=== PATIENT | male | born 1960 | race Caucasian/White ===

== ENCOUNTER 2016-07-02 09:50 | Day surgery (SDC) | payer OTHER ==
[~2016-07-02] VITALS: Ht 188 cm; Wt 107.0 kg
--- NOTE | 2016-07-02 07:09 | PCM.HPANE ---
Patient Data Surgeon Admitting Provider: Attending Provider:Davide Thakur MD Primary Care Physician:Geri Haynes MD Other Provider:[facility] Reason for Visit Benign Neoplasm Of Colon Ht/WT & BMI Body Mass Index Allergies Coded Allergies: No Known Allergies (Verified Allergy, Unknown, 07/01/16) meperidine (Verified Adverse Reaction, Intermediate, nauseated, 06/03/13) Past Anesthesia History Anesthesia History: Denies:: Abnormal Airway, Anesthesia Reactions, Difficult Intubation, Fam Anesthesia Reaction, Fam Malignant Hypertherm, Malignant Hyperthermia Diabetes History Hx Diabetes?: No MRSA MRSA: No Medications Reported Medications Acetaminophen 325 Mg [id number] Mg PO Q4H PRN For Fever Ref 0 07/01/16 Dicyclomine (Bentyl)10 Mg [id number] Mg PO QID 07/01/16 Naproxen Sodium (Aleve)220 Mg [id number] Mg PO DAILY 07/01/16 Omeprazole-Expunged Drug, Do Not Renew! 20 Mg Capsule.dr20 Mg PO DAILY 11/04/12 History History of ENT Problems?: No HEENT History: Denies:: Abnormal Airway Cataracts Difficult Intubation Dysphagia Glaucoma Hearing Problem Sinus Problem TMJ Denture Type: None Teeth Condition: Within Normal Limits Hx of Heart Problems?: Yes Cardiovascular History: Positive for:: Hypertension (MILD) Irregular Heartbeat Denies:: Heart Murmur Rheumatic Fever Hx of Respiratory Problem?: Yes Respiratory History: Positive for:: Use of C-PAP Machine (SNORES, YUKI +) Denies:: Tuberculosis Hx Neurologic Problems?: No Neurological History: Denies:: CVA Seizures Hx of GI Problems?: Yes Gastrointestinal History: Positive for:: Gastroesphageal Reflux Hx of Problems?: No Male Hx: Positive for:: Scrotal Mass (LT SPERMATOCELE) Hx Musculoskeletal Problems?: Yes Hx of Psycho/Social Problems?: Yes Psycho Social History: Positive for:: Anxiety Hx Surgeries?: Yes (VEIN STRIPPING, RADIOFREQUENCY ABLATION/LIGATION OF VARICOSE VEINS) Hx Any Other Health Problems?: Yes Hx Diabetes: No Hx Alcohol Use: Yes (OCCASSIONAL)Hx Substance Use: NoHave You Smoked inLast 12 mo: No (30+ YR HX) Stop/Bang YUKI Risk Assessment: Low Risk, <3 Yes Risk Assessment Category Category 1A: Patient has history of documented sleep apnea, and HAS NOT received any narcotic, sedative or anesthesia administration during this stay. Category 1B: Patient has history of documented sleep apnea, and HAS received any narcotic , sedative or anesthesia administration during this stay Category 2: Patient has SUSPECTED Obstructive Sleep Apnea, and HAS received any narcotic , sedative or anesthesia administration during this stay. Category 3: Patient has SUSPECTED Obstructive Sleep Apnea and HAS NOT received narcotic, sedative or anesthesia administration during this stay. Category 4: Outpatient in Procedural Areas with known sleep apnea or who screen positive for High Risk via the STOP/BANG questionnaire. Exam Exam General Appearance: Alert, Oriented X3, Cooperative, No Acute Distress HEENT/AIRWAY: MP 2 Lungs: Clear to Auscultation, Normal Air Movement Heart: Exam Unremarkable, Regular Rate/Rhythm, No Murmurs/Rubs/Gallops Plan Impression Patient chart reviewed, patient interviewed and anesthestic plan with risks, benefits, and alternatives discussed, and informed consent obtained. ASA Physical Status: ASA2 Mod Systemic Disease Anesthetic Plan: MAC Bene/Risks/Altern/Consents: Yes HP Complete Prior to Induction: Yes Dyllan Dominguez MD Jul 02, 2016 07:09
[~2016-07-02 09:50] MED LIST: ACET325T51 PO; DICY10CA56 PO; NAPR220C11 PO; OMPR20CCR PO
[2016-07-02] MEDS ORDERED: fentaNYL-PF 50 mCg/mL 2 mL Inj ONE (09:51)
[2016-07-02] MEDS ORDERED: Propofol 10,000 mCg/mL 20 mL Inj ONE (09:51)
[2016-07-02 10:12] VITALS: BP 123/87; PULSE 73; RESP 16; O2SAT 96
[2016-07-02] MEDS ORDERED: MetoCLOpramide 5 mg/mL 2 mL Inj IVPUSH PRN (10:35)
[2016-07-02] MEDS ORDERED: Ondansetron 2 mg/mL 2 mL Inj IVPUSH PRN (10:35)
[2016-07-02] MEDS ORDERED: Lactated Ringer's 1,000 ML IV SCH (10:35)
--- NOTE | 2016-07-02 10:36 | PCM.ANEP1 ---
Post Anesthesia Phase 1 PACU Phase 1 Assessment Vital Signs Vital Signs Date Time Temp Pulse Resp B/P Pulse Ox O2 Delivery O2 Flow Rate FiO2 07/02/16 10:12 73 16 123/87 96 Room Air Anesthetic Administered: MAC Level of Alertness: Awake, talking MCNEIL's with Equal Strength: Yes Pain: No Nausea or Vomiting: No Cardiovascular Function and Hy: Yes Lungs: Clear to Auscultation, Normal Air Movement Dyllan Dominguez MD Jul 02, 2016 10:36
[2016-07-02 10:40] VITALS: BP 117/76; PULSE 67; RESP 16; O2SAT 97
[2016-07-02 10:50] VITALS: BP 136/88; PULSE 68; RESP 16; O2SAT 96
[2016-07-02 10:55] VITALS: BP 139/88; PULSE 69; RESP 16; O2SAT 98
--- NOTE | 2016-07-02 11:07 | ENDO ---
[address] [address] ENDOSCOPY PROCEDURE PATIENT: KAMALA BEAR : 1960 MR#: [id number] ADMIT: 07/02/2016 JOB ID: [id number] DATE OF SERVICE: 07/02/16 PROCEDURE: Colonoscopy. PREOPERATIVE DIAGNOSIS(ES): History of serrated adenoma. POSTOPERATIVE DIAGNOSIS(ES): Small internal hemorrhoids. ANESTHESIA: Monitored anesthesia care. COMPLICATIONS: None. BLOOD LOSS: Minimal. DESCRIPTION OF PROCEDURE: After risks and benefits explained to the patient, informed consent was obtained. After anesthesia was administered, a colonoscope was inserted from rectum to cecum. Mucosa carefully examined. Prep of the patient was excellent. After the procedure was done, the scope withdrawn and procedure terminated. FINDINGS: Upon inspection of the anus, there were no masses, hemorrhoids, ulcers or fissures that were seen. Throughout the entire examination, no polyps, masses or lesions. Retroflexion showed small internal hemorrhoids. IMPRESSION: Small internal hemorrhoids. RECOMMENDATIONS: 1. Stool softener as needed. 2. Repeat colonoscopy in five years given history of serrated adenoma polyps.
== END 2016-07-02 23:59 | disposition home or self-care (01) ==
LOC: END 09:50
PROVIDERS: ATTEND Internal Medicine Gastroenterology
DX: Z12.11 Encounter for screening for malignant neoplasm of colon (principal); Z86.010 Personal history of colon polyps; K64.8 Other hemorrhoids; I10 Essential (primary) hypertension; F41.9 Anxiety disorder, unspecified; G47.33 Obstructive sleep apnea (adult) (pediatric); K21.9 Gastro-esophageal reflux disease without esophagitis; Z87.891 Personal history of nicotine dependence; Z87.442 Personal history of urinary calculi
CPT/HCPCS: G0105; J2250; J3010